=== PATIENT | male | born 1985 ===

== ENCOUNTER 2017-12-14 22:54 | Emergency (ER) | payer SELFPAY ==
[2017-12-14 23:14] VITALS: RESP 18; TEMP 98.6; BMI 25.8
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
[2017-12-15 01:16] VITALS: BP 135/75; PULSE 78
[2017-12-15 02:18] VITALS: O2SAT 100
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
== END 2017-12-15 02:17 | disposition home or self-care (01) ==
LOC: ED 22:54
DX: S00.83XA Contusion of other part of head, initial encounter (principal); Y04.0XXA Assault by unarmed brawl or fight, initial encounter; Y92.89 Other specified places as the place of occurrence of the external cause